=== PATIENT | female | born 1980 | race Caucasian/White ===

== ENCOUNTER 2017-06-17 06:26 | Day surgery (SDC) | payer MEDICAID ==
[~2017-06-17] VITALS: Ht 160 cm; Wt 77.1 kg
[~2017-06-17 06:26] MED LIST: ACET-787 PO; METO5SOL19 PO
[2017-06-17] MEDS ORDERED: ZIPR20CA1 PO (07:46)
[2017-06-17] MEDS ORDERED: SERT100T PO (07:46)
[2017-06-17] MEDS ORDERED: MORPHINE SULFATE 4 MG/ML SYR IM/IVP PRN (08:00)
[2017-06-17] MEDS ORDERED: IBUPROFEN 800 MG TAB PO PRN (08:00)
[2017-06-17] MEDS ORDERED: ACETAMINOPHEN/CODEINE 300/30MG 1 TAB PO PRN (08:00)
[2017-06-17] MEDS ORDERED: ONDANSETRON 4 MG/2 ML VIAL IVP PRN ×3 (08:00→08:45)
[2017-06-17] MEDS ORDERED: SEVOFLURANE 250 ML BTL INH ONE ×2 (08:11→11:50)
[2017-06-17] MEDS ORDERED: SUCCINYLCHOLINE CHLORIDE 200 MG/10 ML VIAL IV ONE (08:11)
[2017-06-17] MEDS ORDERED: GLYCOPYRROLATE 0.2 MG/ML VIAL IV ONE (08:11)
[2017-06-17] MEDS ORDERED: ROCURONIUM 50 MG/5 ML VIAL IV ONE (08:11)
[2017-06-17] MEDS ORDERED: PHENYLEPHRINE 10 MG/ML VIAL IV ONE (08:11)
[2017-06-17] MEDS ORDERED: PROPOFOL 200 MG/20 ML VIAL IV ONE ×2 (08:11→11:50)
[2017-06-17] MEDS ORDERED: BUPIVACAINE-MPF 0.5% 30 ML VIAL INJ ONE (08:23)
[2017-06-17] MEDS ORDERED: fentaNYL 0.05 MG/ML VIAL ONE (08:27)
[2017-06-17] MEDS ORDERED: MIDAZOLAM 2 MG/2 ML VIAL ONE (08:27)
[2017-06-17] MEDS ORDERED: MEPERIDINE 50 MG/ML SYR ONE (08:27)
[2017-06-17] MEDS ORDERED: diphenhydrAMINE 50 MG/ML VIAL IVP PRN (08:45)
[2017-06-17] MEDS ORDERED: LACTATED RINGERS 1,000 ML IV SCH (08:45)
[2017-06-17] MEDS ORDERED: MEPERIDINE 25 MG/ML SYR IVP PRN (08:45)
[2017-06-17] MEDS ORDERED: HYDROmorphone 1 MG/ML AMP IVP PRN (08:45)
[2017-06-17] MEDS: HYDROmorphone PFS 2 MG/ML SYR ONE ×2 (09:37→09:47)
[2017-06-17] MEDS ORDERED: DEXAMETHASONE 4 MG/ML VIAL IVP ONE (11:50)
[2017-06-17] MEDS ORDERED: ONDANSETRON 4 MG/2 ML VIAL IVP ONE (11:50)
== END 2017-06-17 11:15 | disposition home or self-care (01) ==
LOC: MDS 06:26 → MMU 06:27 → MDS 11:15
PROVIDERS: ATTEND Obstetrics & Gynecology
DX: Z30.2 Encounter for sterilization (principal); J40 Bronchitis, not specified as acute or chronic; D69.6 Thrombocytopenia, unspecified; G43.909 Migraine, unspecified, not intractable, without status migrainosus; Z64.1 Problems related to multiparity; Z98.51 Tubal ligation status; Z98.890 Other specified postprocedural states; Z79.899 Other long term (current) drug therapy
CPT/HCPCS: 58600; J0330; J0690; J1100; J1170; J2175; J2250; J2370; J2405; J2704; J3010; J3490; J7060; J7120